=== PATIENT | female | born 1935 | race Caucasian/White ===

== ENCOUNTER 2021-12-23 12:50 | Inpatient (IN) | payer MEDICARE ==
[2021-12-23 13:24] LABS: #Monocytes 0.6 10x3/uL (0.0-1.1); %Basophils 0.1 % (0.0-2.0); %Eosinophils 0.1 % (0.0-6.0); %Lymphocytes 6.2 % (18.0-47.0); %Neutrophils 88.7 % (40.0-75.0); Hemoglobin 8.6 g/dL (12.0-15.5); Mean Corpuscular Hemoglobin 28.5 pg (27.0-33.0); Mean Corpuscular Volume 86.4 fl (81.6-98.3); Mean Platelet Volume 9.6 fl (7.4-10.4); Platelet Count 455 10x3/uL (150-450); RBC Distribution Width 15.3 % (11.5-14.5); Red Blood Cell (RBC) Count 3.02 10x6/uL (3.90-5.03); White Blood Cell (WBC) Count 14.6 10x3/uL (3.5-10.5)
[2021-12-23 13:38] LABS: ALT (SGPT) 13 U/L (8-55); AST (SGOT) 17 U/L (5-34); Albumin 3.5 g/dL (3.4-4.8); Alkaline Phosphatase 128 U/L (40-110); Anion Gap 21 mmol/L (10-20); BUN (Urea Nitrogen) 101 mg/dL (9.8-20.1); Bilirubin, Total 0.4 mg/dL (0.2-1.2); Calc. Creatinine Clearance 0 mL/min (70-130); Calcium 9.1 mg/dL (7.8-10.44); Carbon Dioxide 16 mmol/L (23-31); Chloride 106 mmol/L (98-107); Estimated GFR 5; Globulin 2.8 g/dL (2.4-3.5); Glucose 137 mg/dL (83-110); Potassium 5.1 mmol/L (3.5-5.1); Protein, Total 6.3 g/dL (5.8-8.1); Sodium 138 mmol/L (136-145)
[2021-12-23] MEDS ORDERED: Furosemide 40 MG/4 ML VIAL ONE (14:02)
[2021-12-23] MEDS ORDERED: Ampicillin/Sulbactam 1.5 GM in Sodium Chloride 0.9% 100 ML IVPB SCH (16:45)
[2021-12-23] MEDS ORDERED: Sodium Bicarbonate 150 MEQ in Dextrose 5% in Water 1,000 ML IV SCH (16:45)
[2021-12-23] MEDS ORDERED: Ondansetron PF 4 MG/2 ML Vial IVP PRN (16:54)
[2021-12-23] MEDS ORDERED: Ondansetron ODT 4 MG TAB PO PRN (16:54)
[2021-12-23] MEDS ORDERED: Acetaminophen 325 MG TAB PO PRN (16:54)
[2021-12-23] MEDS ORDERED: Pharmacy to Dose UNASYN IVPB PRN (17:23)
[2021-12-23 18:05] LABS: SARS-CoV-2 NAA Rapid Test Not Detected (NotDetected)
[2021-12-23] MEDS ORDERED: Sodium Bicarbonate 150 MEQ, Admixture Fee 1 EACH in Dextrose 5% in Water 1,000 ML IV SCH (18:17)
[2021-12-23] MEDS: Piperacillin/Tazobactam 3.375 GM in Sodium Chloride 0.9% 100 ML IVPB SCH (22:00)
[2021-12-23] MEDS: guaiFENesin ER 600 MG TAB PO SCH (22:20)
[2021-12-23 22:24] VITALS: BMI 25.7
[2021-12-24 04:51] LABS: #Monocytes 0.5 10x3/uL (0.0-1.1); #Neutrophils 10.2 10x3/uL (1.5-8.4); %Basophils 0.1 % (0.0-2.0); %Eosinophils 0.3 % (0.0-6.0); %Lymphocytes 6.5 % (18.0-47.0); %Monocytes 4.1 % (0.0-10.0); %Neutrophils 88.1 % (40.0-75.0); Hemoglobin 7.7 g/dL (12.0-15.5); Mean Corpuscular HGB CONC 33.3 g/dL (32.0-36.0); Mean Corpuscular Hemoglobin 28.4 pg (27.0-33.0); Mean Corpuscular Volume 85.2 fl (81.6-98.3); Mean Platelet Volume 9.8 fl (7.4-10.4); Platelet Count 412 10x3/uL (150-450); RBC Distribution Width 15.3 % (11.5-14.5); Red Blood Cell (RBC) Count 2.71 10x6/uL (3.90-5.03); White Blood Cell (WBC) Count 11.6 10x3/uL (3.5-10.5)
[2021-12-24 05:14] LABS: Anion Gap 20 mmol/L (10-20); BUN (Urea Nitrogen) 109 mg/dL (9.8-20.1); Calc. Creatinine Clearance 7 mL/min (70-130); Carbon Dioxide 16 mmol/L (23-31); Chloride 107 mmol/L (98-107); Estimated GFR 6; Glucose 124 mg/dL (83-110); Potassium 3.9 mmol/L (3.5-5.1); Sodium 139 mmol/L (136-145)
[2021-12-24 05:28] LABS: Bilirubin Neg (Negative); Blood, Urine Negative (Negative); Clarity Clear (Clear); Glucose, Urine (Dipstick) Normal (Negative); Ketone, Urine Negative (Negative); Leukocyte 25 (Negative); Nitrite Negative (Negative); Protein, Urine (Dipstick) 15 mg/dl (Neg-Trace); Specific Gravity, Urine 1.005 (1.002-1.036); Urobilinogen Normal mg/dL (Less than 2)
[2021-12-24 05:39] LABS: Bacteria/HPF None Seen HPF (None Seen); RBC/HPF 0-3 HPF (0-3); Squamous Epithelial None Seen HPF (0-3); Urine Culture Reflex Yes Yes; WBC/HPF 0-3 HPF (0-3)
[2021-12-24 05:46] LABS: Creatinine, Urine 57.23 mg/dL (47-110)
[2021-12-24 06:54] LABS: Iron 14 ug/dL (50-170); Iron Binding Capacity, Total 139 mcg/dL (265-497)
[2021-12-24] MEDS ORDERED: Sodium Bicarbonate 150 MEQ, Admixture Fee 1 EACH in Dextrose 5% in Water 1,000 ML IV SCH ×2 (08:00→20:30)
[2021-12-24] MEDS: Piperacillin/Tazobactam 3.375 GM in Sodium Chloride 0.9% 100 ML IVPB SCH ×2 (08:26→21:28)
[2021-12-24] MEDS: guaiFENesin ER 600 MG TAB PO SCH ×2 (08:27→21:28)
[2021-12-24] MEDS ORDERED: Ampicillin/Sulbactam 1.5 GM in Sodium Chloride 0.9% 100 ML IVPB SCH (17:00)
[2021-12-25 04:54] LABS: #Eosinphils 0.1 10x3/uL (0.0-0.5); #Monocytes 0.5 10x3/uL (0.0-1.1); #Neutrophils 9.8 10x3/uL (1.5-8.4); %Basophils 0.2 % (0.0-2.0); %Eosinophils 0.4 % (0.0-6.0); %Lymphocytes 6.8 % (18.0-47.0); %Monocytes 4.2 % (0.0-10.0); Hemoglobin 8.1 g/dL (12.0-15.5); Mean Corpuscular Volume 82.4 fl (81.6-98.3); Mean Platelet Volume 9.3 fl (7.4-10.4); Platelet Count 447 10x3/uL (150-450); RBC Distribution Width 14.7 % (11.5-14.5); Red Blood Cell (RBC) Count 2.89 10x6/uL (3.90-5.03); White Blood Cell (WBC) Count 11.3 10x3/uL (3.5-10.5)
[2021-12-25 05:04] LABS: Anion Gap 21 mmol/L (10-20); BUN (Urea Nitrogen) 96 mg/dL (9.8-20.1); Calc. Creatinine Clearance 10 mL/min (70-130); Calcium 8.7 mg/dL (7.8-10.44); Carbon Dioxide 25 mmol/L (23-31); Chloride 102 mmol/L (98-107); Estimated GFR 9; Glucose 130 mg/dL (83-110); Sodium 145 mmol/L (136-145)
[2021-12-25 05:08] LABS: Potassium 2.7 mmol/L (3.5-5.1)
[2021-12-25] MEDS ORDERED: Potassium Chloride 20 MEQ TAB PO SCH ×2 (05:45→08:00)
[2021-12-25] MEDS ORDERED: EPOETIN ALFA-EPBX (ESRD) 10,000 UNIT/ML VIAL SC SCH (08:00)
[2021-12-25] MEDS ORDERED: Epoetin (ESRD) 10,000 UNITS/ML VIAL SC SCH (09:00)
[2021-12-25] MEDS: Piperacillin/Tazobactam 3.375 GM in Sodium Chloride 0.9% 100 ML IVPB SCH ×2 (09:56→20:42)
[2021-12-25] MEDS: Apixaban 2.5 MG TAB PO SCH ×2 (10:17→20:42)
[2021-12-25] MEDS: guaiFENesin ER 600 MG TAB PO SCH ×2 (10:17→20:42)
[2021-12-25] MEDS: Iron, Sodium Ferric Gluconate 250 MG, Admixture Fee 1 EACH in Sodium Chloride 0.9% 250 ... IVPB SCH (11:35)
[2021-12-25 12:10] LABS: Potassium 3.2 mmol/L (3.5-5.1)
[2021-12-25] MEDS ORDERED: Loratadine 10 MG TAB PO SCH (18:30)
[2021-12-25] MEDS ORDERED: Benzonatate 100 MG CAP PO SCH (18:30)
[2021-12-26 04:46] LABS: Anion Gap 15 mmol/L (10-20); BUN (Urea Nitrogen) 70 mg/dL (9.8-20.1); Calc. Creatinine Clearance 17 mL/min (70-130); Calcium 8.4 mg/dL (7.8-10.44); Carbon Dioxide 29 mmol/L (23-31); Chloride 103 mmol/L (98-107); Estimated GFR 18; Glucose 130 mg/dL (83-110); Sodium 145 mmol/L (136-145)
[2021-12-26 04:48] LABS: #Eosinphils 0.1 10x3/uL (0.0-0.5); #Monocytes 0.6 10x3/uL (0.0-1.1); %Basophils 0.2 % (0.0-2.0); %Eosinophils 0.4 % (0.0-6.0); %Lymphocytes 6.6 % (18.0-47.0); %Monocytes 5.2 % (0.0-10.0); %Neutrophils 85.9 % (40.0-75.0); Hemoglobin 8.2 g/dL (12.0-15.5); Mean Corpuscular HGB CONC 33.9 g/dL (32.0-36.0); Mean Corpuscular Hemoglobin 28.1 pg (27.0-33.0); Mean Corpuscular Volume 82.9 fl (81.6-98.3); Mean Platelet Volume 9.1 fl (7.4-10.4); Platelet Count 422 10x3/uL (150-450); RBC Distribution Width 14.6 % (11.5-14.5); Red Blood Cell (RBC) Count 2.92 10x6/uL (3.90-5.03); White Blood Cell (WBC) Count 11.7 10x3/uL (3.5-10.5)
[2021-12-26 04:49] LABS: Potassium 2.4 mmol/L (3.5-5.1)
[2021-12-26] MEDS ORDERED: Potassium Chloride 20 MEQ TAB PO SCH ×2 (05:45→07:30)
[2021-12-26 06:19] LABS: Phosphorus 3.8 mg/dL (2.3-4.7)
[2021-12-26] MEDS: Loratadine 10 MG TAB PO SCH (11:13)
[2021-12-26] MEDS: Benzonatate 100 MG CAP PO SCH ×3 (11:13→21:12)
[2021-12-26] MEDS: Apixaban 2.5 MG TAB PO SCH ×2 (11:14→21:12)
[2021-12-26] MEDS: Piperacillin/Tazobactam 3.375 GM in Sodium Chloride 0.9% 100 ML IVPB SCH ×2 (11:15→22:21)
[2021-12-26] MEDS: Lactated Ringer's 1,000 ML IV SCH (13:31)
[2021-12-26] MEDS: guaiFENesin ER 600 MG TAB PO SCH ×2 (13:32→21:16)
[2021-12-26] MEDS: Potassium Chloride 20 MEQ TAB PO SCH ×2 (13:32→21:22)
[2021-12-26] MEDS: Potassium Chloride 20 MEQ in Premix Bag 1 BAG IVPB SCH ×2 (15:29→21:31)
[2021-12-26] MEDS: Iron, Sodium Ferric Gluconate 250 MG, Admixture Fee 1 EACH in Sodium Chloride 0.9% 250 ... IVPB SCH (15:45)
[2021-12-26 19:23] LABS: Anion Gap 16 mmol/L (10-20); BUN (Urea Nitrogen) 56 mg/dL (9.8-20.1); Calc. Creatinine Clearance 22 mL/min (70-130); Calcium 8.4 mg/dL (7.8-10.44); Carbon Dioxide 29 mmol/L (23-31); Chloride 103 mmol/L (98-107); Estimated GFR 25; Glucose 120 mg/dL (83-110); Potassium 3.3 mmol/L (3.5-5.1); Sodium 145 mmol/L (136-145)
[2021-12-26] MEDS ORDERED: Potassium Chloride 20 MEQ in Premix Bag 1 BAG IVPB SCH (21:00)
[2021-12-27 05:01] LABS: #Eosinphils 0.2 10x3/uL (0.0-0.5); #Monocytes 0.6 10x3/uL (0.0-1.1); #Neutrophils 10.8 10x3/uL (1.5-8.4); %Basophils 0.2 % (0.0-2.0); %Eosinophils 1.3 % (0.0-6.0); %Lymphocytes 9.1 % (18.0-47.0); %Monocytes 4.5 % (0.0-10.0); %Neutrophils 81.1 % (40.0-75.0); Hemoglobin 8.2 g/dL (12.0-15.5); Mean Corpuscular HGB CONC 31.8 g/dL (32.0-36.0); Mean Corpuscular Hemoglobin 27.6 pg (27.0-33.0); Mean Corpuscular Volume 86.9 fl (81.6-98.3); Mean Platelet Volume 9.2 fl (7.4-10.4); Platelet Count 373 10x3/uL (150-450); RBC Distribution Width 14.9 % (11.5-14.5); Red Blood Cell (RBC) Count 2.97 10x6/uL (3.90-5.03); White Blood Cell (WBC) Count 13.4 10x3/uL (3.5-10.5)
[2021-12-27 05:16] LABS: Albumin 2.7 g/dL (3.4-4.8); Anion Gap 15 mmol/L (10-20); BUN (Urea Nitrogen) 48 mg/dL (9.8-20.1); BUN/Creatinine Ratio 29.81; Calc. Creatinine Clearance 26 mL/min (70-130); Carbon Dioxide 26 mmol/L (23-31); Chloride 109 mmol/L (98-107); Estimated GFR 31; Glucose 106 mg/dL (83-110); Magnesium 1.2 mg/dL (1.6-2.6); Phosphorus 2.5 mg/dL (2.3-4.7); Potassium 3.5 mmol/L (3.5-5.1); Sodium 146 mmol/L (136-145)
[2021-12-27] MEDS: Lactated Ringer's 1,000 ML IV SCH (06:31)
[2021-12-27] MEDS ORDERED: Magnesium Sulfate 4 GM in Sodium Chloride 0.9% 250 ML 250 ML IVPB SCH (07:15)
[2021-12-27] MEDS: Magnesium 2 GM/50 ML(in water) 2 GM in Premix Bag 1 BAG IVPB SCH ×2 (09:23→13:50)
[2021-12-27] MEDS: Loratadine 10 MG TAB PO SCH (09:23)
[2021-12-27] MEDS: guaiFENesin ER 600 MG TAB PO SCH ×2 (09:24→21:34)
[2021-12-27] MEDS: Apixaban 2.5 MG TAB PO SCH ×2 (09:24→21:34)
[2021-12-27] MEDS: Benzonatate 100 MG CAP PO SCH ×3 (09:24→21:34)
[2021-12-27] MEDS: Piperacillin/Tazobactam 3.375 GM in Sodium Chloride 0.9% 100 ML IVPB SCH ×2 (09:25→21:26)
[2021-12-27] MEDS ORDERED: Magnesium 2 GM/50 ML(in water) 2 GM in Premix Bag 1 BAG IVPB SCH (13:45)
[2021-12-27] MEDS: Acetylcysteine 800 MG/4 ML VIAL INH SCH ×2 (15:16→20:41)
[2021-12-27] MEDS: Iron, Sodium Ferric Gluconate 250 MG, Admixture Fee 1 EACH in Sodium Chloride 0.9% 250 ... IVPB SCH (16:27)
[2021-12-27] MEDS ORDERED: Potassium Chloride 20 MEQ TAB PO SCH (17:00)
[2021-12-27] MEDS: Potassium Chloride 20 MEQ in Premix Bag 1 BAG IVPB SCH ×2 (18:28→18:30)
[2021-12-28] MEDS: Acetylcysteine 800 MG/4 ML VIAL INH SCH ×4 (01:00→20:58)
[2021-12-28 05:25] LABS: #Eosinphils 0.3 10x3/uL (0.0-0.5); #Monocytes 0.7 10x3/uL (0.0-1.1); #Neutrophils 13.4 10x3/uL (1.5-8.4); %Basophils 0.2 % (0.0-2.0); %Eosinophils 1.6 % (0.0-6.0); %Lymphocytes 8.3 % (18.0-47.0); %Monocytes 4.2 % (0.0-10.0); %Neutrophils 80.8 % (40.0-75.0); Hemoglobin 8.9 g/dL (12.0-15.5); Mean Corpuscular HGB CONC 31.6 g/dL (32.0-36.0); Mean Corpuscular Hemoglobin 27.4 pg (27.0-33.0); Mean Corpuscular Volume 86.8 fl (81.6-98.3); Mean Platelet Volume 9.5 fl (7.4-10.4); Platelet Count 475 10x3/uL (150-450); RBC Distribution Width 14.9 % (11.5-14.5); Red Blood Cell (RBC) Count 3.25 10x6/uL (3.90-5.03); White Blood Cell (WBC) Count 16.6 10x3/uL (3.5-10.5)
[2021-12-28 05:30] LABS: Albumin 2.9 g/dL (3.4-4.8); Anion Gap 13 mmol/L (10-20); BUN (Urea Nitrogen) 28 mg/dL (9.8-20.1); BUN/Creatinine Ratio 23.93; Calc. Creatinine Clearance 36 mL/min (70-130); Calcium 8.4 mg/dL (7.8-10.44); Carbon Dioxide 25 mmol/L (23-31); Chloride 108 mmol/L (98-107); Estimated GFR 45; Glucose 110 mg/dL (83-110); Magnesium 1.8 mg/dL (1.6-2.6); Phosphorus 2.6 mg/dL (2.3-4.7); Potassium 3.4 mmol/L (3.5-5.1); Sodium 143 mmol/L (136-145)
[2021-12-28] MEDS: Lactated Ringer's 1,000 ML IV SCH (06:42)
[2021-12-28] MEDS: Potassium Chloride 20 MEQ TAB PO SCH ×2 (10:14→21:33)
[2021-12-28] MEDS: Benzonatate 100 MG CAP PO SCH ×3 (10:15→21:33)
[2021-12-28] MEDS: Magnesium Oxide 400 MG TAB PO SCH ×2 (10:15→21:33)
[2021-12-28] MEDS: Apixaban 2.5 MG TAB PO SCH ×2 (10:15→21:34)
[2021-12-28] MEDS: guaiFENesin ER 600 MG TAB PO SCH ×2 (10:15→21:34)
[2021-12-28] MEDS: Piperacillin/Tazobactam 3.375 GM in Sodium Chloride 0.9% 100 ML IVPB SCH ×2 (10:16→17:17)
[2021-12-28] MEDS: Loratadine 10 MG TAB PO SCH (10:16)
[2021-12-29] MEDS ORDERED: Piperacillin/Tazobactam 3.375 GM VIAL ONE (00:56)
[2021-12-29] MEDS: Acetylcysteine 800 MG/4 ML VIAL INH SCH ×4 (01:00→20:02)
[2021-12-29] MEDS: Piperacillin/Tazobactam 3.375 GM in Sodium Chloride 0.9% 100 ML IVPB SCH ×3 (01:14→17:16)
[2021-12-29 05:42] LABS: #Basophils 0.1 10x3/uL (0.0-0.2); #Eosinphils 0.3 10x3/uL (0.0-0.5); #Monocytes 0.7 10x3/uL (0.0-1.1); #Neutrophils 12.8 10x3/uL (1.5-8.4); %Basophils 0.3 % (0.0-2.0); %Monocytes 4.4 % (0.0-10.0); %Neutrophils 78.3 % (40.0-75.0); Hemoglobin 9.1 g/dL (12.0-15.5); Mean Corpuscular HGB CONC 30.8 g/dL (32.0-36.0); Mean Corpuscular Volume 90.8 fl (81.6-98.3); Mean Platelet Volume 9.3 fl (7.4-10.4); Platelet Count 475 10x3/uL (150-450); RBC Distribution Width 14.9 % (11.5-14.5); Red Blood Cell (RBC) Count 3.25 10x6/uL (3.90-5.03); White Blood Cell (WBC) Count 16.3 10x3/uL (3.5-10.5)
[2021-12-29 05:54] LABS: Anion Gap 15 mmol/L (10-20); BUN (Urea Nitrogen) 20 mg/dL (9.8-20.1); BUN/Creatinine Ratio 18.87; Calc. Creatinine Clearance 40 mL/min (70-130); Calcium 8.9 mg/dL (7.8-10.44); Carbon Dioxide 25 mmol/L (23-31); Chloride 110 mmol/L (98-107); Estimated GFR 51; Glucose 100 mg/dL (83-110); Magnesium 1.5 mg/dL (1.6-2.6); Phosphorus 2.6 mg/dL (2.3-4.7); Potassium 4.3 mmol/L (3.5-5.1); Sodium 146 mmol/L (136-145)
[2021-12-29] MEDS ORDERED: Magnesium 2 GM/50 ML(in water) 4 GM in Premix Bag 1 BAG IVPB SCH (06:30)
[2021-12-29] MEDS ORDERED: Magnesium 2 GM/50 ML(in water) 2 GM in Premix Bag 1 BAG IVPB SCH (08:00)
[2021-12-29] MEDS: Magnesium Oxide 400 MG TAB PO SCH ×2 (10:10→20:47)
[2021-12-29] MEDS: Apixaban 2.5 MG TAB PO SCH ×2 (10:10→20:47)
[2021-12-29] MEDS: guaiFENesin ER 600 MG TAB PO SCH ×2 (10:10→20:47)
[2021-12-29] MEDS: Loratadine 10 MG TAB PO SCH (10:10)
[2021-12-29] MEDS: Potassium Chloride 20 MEQ TAB PO SCH (10:10)
[2021-12-29] MEDS: Benzonatate 100 MG CAP PO SCH ×3 (10:10→20:47)
[2021-12-30] MEDS: Acetylcysteine 800 MG/4 ML VIAL INH SCH ×4 (01:00→19:20)
[2021-12-30] MEDS: Piperacillin/Tazobactam 3.375 GM in Sodium Chloride 0.9% 100 ML IVPB SCH ×3 (01:03→20:03)
[2021-12-30 05:16] LABS: #Basophils 0.1 10x3/uL (0.0-0.2); #Eosinphils 0.3 10x3/uL (0.0-0.5); #Monocytes 0.7 10x3/uL (0.0-1.1); #Neutrophils 12.2 10x3/uL (1.5-8.4); %Basophils 0.4 % (0.0-2.0); %Eosinophils 1.9 % (0.0-6.0); %Lymphocytes 9.2 % (18.0-47.0); %Monocytes 4.5 % (0.0-10.0); %Neutrophils 79.9 % (40.0-75.0); Hemoglobin 8.3 g/dL (12.0-15.5); Mean Corpuscular HGB CONC 31.2 g/dL (32.0-36.0); Mean Corpuscular Volume 89.9 fl (81.6-98.3); Mean Platelet Volume 9.5 fl (7.4-10.4); Platelet Count 458 10x3/uL (150-450); RBC Distribution Width 14.7 % (11.5-14.5); Red Blood Cell (RBC) Count 2.96 10x6/uL (3.90-5.03); White Blood Cell (WBC) Count 15.2 10x3/uL (3.5-10.5)
[2021-12-30 05:38] LABS: Albumin 2.8 g/dL (3.4-4.8); Anion Gap 16 mmol/L (10-20); BUN (Urea Nitrogen) 20 mg/dL (9.8-20.1); BUN/Creatinine Ratio 18.18; Calc. Creatinine Clearance 39 mL/min (70-130); Calcium 8.6 mg/dL (7.8-10.44); Carbon Dioxide 24 mmol/L (23-31); Chloride 108 mmol/L (98-107); Estimated GFR 49; Glucose 100 mg/dL (83-110); Phosphorus 2.9 mg/dL (2.3-4.7); Potassium 3.7 mmol/L (3.5-5.1); Sodium 144 mmol/L (136-145)
[2021-12-30] MEDS: traMADol HCl 50 MG TAB PO PRN (06:15)
[2021-12-30] MEDS: Potassium Chloride 20 MEQ TAB PO SCH (10:08)
[2021-12-30] MEDS: guaiFENesin ER 600 MG TAB PO SCH ×2 (10:08→21:32)
[2021-12-30] MEDS: Magnesium Oxide 400 MG TAB PO SCH ×2 (10:09→21:33)
[2021-12-30] MEDS: Loratadine 10 MG TAB PO SCH (10:09)
[2021-12-30] MEDS: Benzonatate 100 MG CAP PO SCH ×3 (10:09→21:33)
[2021-12-30] MEDS: Apixaban 2.5 MG TAB PO SCH ×2 (10:09→21:33)
[2021-12-30] MEDS: Amlodipine 5 MG TAB PO SCH (10:09)
[2021-12-30] MEDS ORDERED: predniSONE 20 MG TAB PO SCH (11:00)
[2021-12-30] MEDS ORDERED: Epoetin (ESRD) 10,000 UNITS/ML VIAL SC SCH (12:30)
[2021-12-30] MEDS ORDERED: Iron, Sodium Ferric Gluconate 250 MG in Sodium Chloride 0.9% 250 ML 250 ML IVPB SCH (14:30)
[2021-12-31] MEDS: Piperacillin/Tazobactam 3.375 GM in Sodium Chloride 0.9% 100 ML IVPB SCH ×3 (01:06→17:28)
[2021-12-31] MEDS: Acetylcysteine 800 MG/4 ML VIAL INH SCH ×4 (03:40→19:14)
[2021-12-31 05:18] LABS: #Monocytes 0.2 10x3/uL (0.0-1.1); #Neutrophils 14.3 10x3/uL (1.5-8.4); %Basophils 0.2 % (0.0-2.0); %Lymphocytes 5.2 % (18.0-47.0); %Monocytes 1.4 % (0.0-10.0); %Neutrophils 88.7 % (40.0-75.0); Mean Corpuscular HGB CONC 31.4 g/dL (32.0-36.0); Mean Corpuscular Hemoglobin 28.4 pg (27.0-33.0); Mean Corpuscular Volume 90.4 fl (81.6-98.3); Mean Platelet Volume 9.9 fl (7.4-10.4); Platelet Count 425 10x3/uL (150-450); Red Blood Cell (RBC) Count 2.82 10x6/uL (3.90-5.03); White Blood Cell (WBC) Count 16.1 10x3/uL (3.5-10.5)
[2021-12-31 05:31] LABS: Magnesium 1.7 mg/dL (1.6-2.6)
[2021-12-31 08:27] LABS: Anion Gap 13 mmol/L (10-20); BUN (Urea Nitrogen) 22 mg/dL (9.8-20.1); Calc. Creatinine Clearance 42 mL/min (70-130); Calcium 8.8 mg/dL (7.8-10.44); Carbon Dioxide 24 mmol/L (23-31); Chloride 107 mmol/L (98-107); Estimated GFR 53; Glucose 138 mg/dL (83-110); Potassium 4.3 mmol/L (3.5-5.1); Sodium 140 mmol/L (136-145)
[2021-12-31] MEDS: Potassium Chloride 20 MEQ TAB PO SCH (09:08)
[2021-12-31] MEDS: Magnesium Oxide 400 MG TAB PO SCH ×2 (09:09→21:11)
[2021-12-31] MEDS: predniSONE 50 MG TAB PO SCH (09:09)
[2021-12-31] MEDS: Apixaban 2.5 MG TAB PO SCH (09:12)
[2021-12-31] MEDS: guaiFENesin ER 600 MG TAB PO SCH ×2 (09:12→21:10)
[2021-12-31] MEDS: Loratadine 10 MG TAB PO SCH (09:12)
[2021-12-31] MEDS: Benzonatate 100 MG CAP PO SCH ×3 (09:12→21:11)
[2021-12-31] MEDS: Amlodipine 5 MG TAB PO SCH (09:12)
[2021-12-31] MEDS ORDERED: Magnesium Sulfate 4 GM in Sodium Chloride 0.9% 250 ML 250 ML IVPB SCH (09:15)
[2021-12-31] MEDS ORDERED: Magnesium 2 GM/50 ML BAG (IN WATER) ONE (11:06)
[2021-12-31] MEDS: Magnesium 2 GM/50 ML(in water) 2 GM in Premix Bag 1 BAG IVPB SCH ×2 (11:19→13:36)
[2021-12-31] MEDS: traMADol HCl 50 MG TAB PO PRN (20:08)
[2021-12-31] MEDS: Apixaban 5 MG TAB PO SCH (21:11)
[2022-01-01] MEDS: Acetylcysteine 800 MG/4 ML VIAL INH SCH ×4 (00:42→19:59)
[2022-01-01] MEDS: Piperacillin/Tazobactam 3.375 GM in Sodium Chloride 0.9% 100 ML IVPB SCH ×2 (02:14→08:31)
[2022-01-01 03:46] LABS: #Monocytes 0.9 10x3/uL (0.0-1.1); #Neutrophils 15.1 10x3/uL (1.5-8.4); %Basophils 0.2 % (0.0-2.0); %Eosinophils 0.1 % (0.0-6.0); %Lymphocytes 7.3 % (18.0-47.0); %Monocytes 4.8 % (0.0-10.0); %Neutrophils 83.2 % (40.0-75.0); Hemoglobin 7.9 g/dL (12.0-15.5); Mean Corpuscular HGB CONC 31.1 g/dL (32.0-36.0); Mean Corpuscular Hemoglobin 27.8 pg (27.0-33.0); Mean Corpuscular Volume 89.4 fl (81.6-98.3); Mean Platelet Volume 9.7 fl (7.4-10.4); Platelet Count 448 10x3/uL (150-450); RBC Distribution Width 15.4 % (11.5-14.5); Red Blood Cell (RBC) Count 2.84 10x6/uL (3.90-5.03); White Blood Cell (WBC) Count 18.1 10x3/uL (3.5-10.5)
[2022-01-01 03:58] LABS: Anion Gap 12 mmol/L (10-20); BUN (Urea Nitrogen) 23 mg/dL (9.8-20.1); Calc. Creatinine Clearance 38 mL/min (70-130); Calcium 8.7 mg/dL (7.8-10.44); Carbon Dioxide 24 mmol/L (23-31); Chloride 109 mmol/L (98-107); Estimated GFR 48; Glucose 111 mg/dL (83-110); Magnesium 1.9 mg/dL (1.6-2.6); Potassium 4.3 mmol/L (3.5-5.1); Sodium 141 mmol/L (136-145)
[2022-01-01] MEDS: Magnesium Oxide 400 MG TAB PO SCH ×2 (08:31→21:08)
[2022-01-01] MEDS: guaiFENesin ER 600 MG TAB PO SCH ×2 (08:31→21:10)
[2022-01-01] MEDS: predniSONE 50 MG TAB PO SCH (08:31)
[2022-01-01] MEDS: Amlodipine 5 MG TAB PO SCH (08:31)
[2022-01-01] MEDS: Apixaban 5 MG TAB PO SCH ×2 (08:32→21:08)
[2022-01-01] MEDS: Benzonatate 100 MG CAP PO SCH ×3 (08:32→21:08)
[2022-01-01] MEDS: Loratadine 10 MG TAB PO SCH (08:32)
[2022-01-02] MEDS: Acetylcysteine 800 MG/4 ML VIAL INH SCH ×4 (00:56→20:14)
[2022-01-02 05:46] LABS: #Neutrophils 11.7 10x3/uL (1.5-8.4); %Basophils 0.1 % (0.0-2.0); %Lymphocytes 9.1 % (18.0-47.0); %Monocytes 6.8 % (0.0-10.0); %Neutrophils 79.8 % (40.0-75.0); Hemoglobin 7.6 g/dL (12.0-15.5); Mean Corpuscular HGB CONC 31.1 g/dL (32.0-36.0); Mean Corpuscular Hemoglobin 28.3 pg (27.0-33.0); Mean Corpuscular Volume 90.7 fl (81.6-98.3); Mean Platelet Volume 9.8 fl (7.4-10.4); Platelet Count 463 10x3/uL (150-450); RBC Distribution Width 15.8 % (11.5-14.5); Red Blood Cell (RBC) Count 2.69 10x6/uL (3.90-5.03); White Blood Cell (WBC) Count 14.6 10x3/uL (3.5-10.5)
[2022-01-02 05:56] LABS: Anion Gap 11 mmol/L (10-20); BUN (Urea Nitrogen) 23 mg/dL (9.8-20.1); Calc. Creatinine Clearance 41 mL/min (70-130); Calcium 8.5 mg/dL (7.8-10.44); Carbon Dioxide 26 mmol/L (23-31); Chloride 109 mmol/L (98-107); Estimated GFR 53; Glucose 111 mg/dL (83-110); Magnesium 1.7 mg/dL (1.6-2.6); Sodium 142 mmol/L (136-145)
[2022-01-02] MEDS: Apixaban 5 MG TAB PO SCH ×2 (09:43→21:26)
[2022-01-02] MEDS: Amlodipine 5 MG TAB PO SCH (09:43)
[2022-01-02] MEDS: predniSONE 50 MG TAB PO SCH (09:43)
[2022-01-02] MEDS: Benzonatate 100 MG CAP PO SCH ×3 (09:43→21:26)
[2022-01-02] MEDS: guaiFENesin ER 600 MG TAB PO SCH ×2 (09:43→21:26)
[2022-01-02] MEDS: Loratadine 10 MG TAB PO SCH (09:43)
[2022-01-02] MEDS: Magnesium Oxide 400 MG TAB PO SCH ×2 (09:43→21:26)
[2022-01-02] MEDS: traMADol HCl 50 MG TAB PO PRN (15:08)
[2022-01-03] MEDS: Acetylcysteine 800 MG/4 ML VIAL INH SCH ×4 (01:00→19:22)
[2022-01-03 05:13] LABS: #Monocytes 0.8 10x3/uL (0.0-1.1); #Neutrophils 10.5 10x3/uL (1.5-8.4); %Basophils 0.2 % (0.0-2.0); %Eosinophils 0.1 % (0.0-6.0); %Lymphocytes 10.6 % (18.0-47.0); %Monocytes 6.3 % (0.0-10.0); %Neutrophils 80.4 % (40.0-75.0); Hemoglobin 7.8 g/dL (12.0-15.5); Mean Corpuscular HGB CONC 31.7 g/dL (32.0-36.0); Mean Corpuscular Hemoglobin 28.4 pg (27.0-33.0); Mean Corpuscular Volume 89.5 fl (81.6-98.3); Mean Platelet Volume 9.9 fl (7.4-10.4); Platelet Count 473 10x3/uL (150-450); RBC Distribution Width 16.1 % (11.5-14.5); Red Blood Cell (RBC) Count 2.75 10x6/uL (3.90-5.03); White Blood Cell (WBC) Count 13.1 10x3/uL (3.5-10.5)
[2022-01-03 05:15] LABS: Anion Gap 12 mmol/L (10-20); BUN (Urea Nitrogen) 25 mg/dL (9.8-20.1); Calc. Creatinine Clearance 51 mL/min (70-130); Calcium 8.9 mg/dL (7.8-10.44); Carbon Dioxide 26 mmol/L (23-31); Chloride 105 mmol/L (98-107); Estimated GFR 67; Glucose 96 mg/dL (83-110); Potassium 4.2 mmol/L (3.5-5.1); Sodium 139 mmol/L (136-145)
[2022-01-03 05:44] LABS: Magnesium 1.7 mg/dL (1.6-2.6)
[2022-01-03] MEDS: Benzonatate 100 MG CAP PO SCH ×3 (09:36→20:44)
[2022-01-03] MEDS: guaiFENesin ER 600 MG TAB PO SCH ×2 (09:36→20:44)
[2022-01-03] MEDS: Apixaban 5 MG TAB PO SCH ×2 (09:36→20:44)
[2022-01-03] MEDS: Amlodipine 5 MG TAB PO SCH (09:37)
[2022-01-03] MEDS: Loratadine 10 MG TAB PO SCH (09:37)
[2022-01-03] MEDS: Magnesium Oxide 400 MG TAB PO SCH ×2 (09:37→20:44)
[2022-01-03] MEDS: predniSONE 50 MG TAB PO SCH (09:37)
[2022-01-03] MEDS: traMADol HCl 50 MG TAB PO PRN (14:42)
[2022-01-04] MEDS: Acetylcysteine 800 MG/4 ML VIAL INH SCH ×4 (01:00→19:00)
[2022-01-04] MEDS: Amlodipine 5 MG TAB PO SCH (05:13)
[2022-01-04 05:37] LABS: Anion Gap 10 mmol/L (10-20); BUN (Urea Nitrogen) 24 mg/dL (9.8-20.1); Calc. Creatinine Clearance 50 mL/min (70-130); Calcium 8.9 mg/dL (7.8-10.44); Carbon Dioxide 27 mmol/L (23-31); Chloride 107 mmol/L (98-107); Estimated GFR 66; Glucose 111 mg/dL (83-110); Potassium 4.2 mmol/L (3.5-5.1); Sodium 140 mmol/L (136-145)
[2022-01-04] MEDS: Magnesium Oxide 400 MG TAB PO SCH ×2 (09:57→20:44)
[2022-01-04] MEDS: Apixaban 5 MG TAB PO SCH ×2 (09:57→20:44)
[2022-01-04] MEDS: Benzonatate 100 MG CAP PO SCH ×3 (09:58→20:44)
[2022-01-04] MEDS: guaiFENesin ER 600 MG TAB PO SCH ×2 (09:58→20:44)
[2022-01-04] MEDS: Loratadine 10 MG TAB PO SCH (09:58)
[2022-01-05] MEDS: Acetylcysteine 800 MG/4 ML VIAL INH SCH ×4 (01:00→19:46)
[2022-01-05 04:53] LABS: Anion Gap 11 mmol/L (10-20); BUN (Urea Nitrogen) 21 mg/dL (9.8-20.1); Calc. Creatinine Clearance 55 mL/min (70-130); Calcium 8.8 mg/dL (7.8-10.44); Carbon Dioxide 28 mmol/L (23-31); Chloride 103 mmol/L (98-107); Estimated GFR 75; Glucose 89 mg/dL (83-110); Potassium 3.9 mmol/L (3.5-5.1); Sodium 138 mmol/L (136-145)
[2022-01-05] MEDS: Amlodipine 5 MG TAB PO SCH (05:49)
[2022-01-05] MEDS: guaiFENesin ER 600 MG TAB PO SCH ×2 (09:35→20:36)
[2022-01-05] MEDS: Apixaban 5 MG TAB PO SCH ×2 (09:36→20:36)
[2022-01-05] MEDS: Amlodipine 10 MG TAB PO SCH (09:36)
[2022-01-05] MEDS: Magnesium Oxide 400 MG TAB PO SCH ×2 (09:37→20:36)
[2022-01-05] MEDS: Loratadine 10 MG TAB PO SCH (09:37)
[2022-01-05] MEDS: Benzonatate 100 MG CAP PO SCH ×3 (09:37→20:36)
[2022-01-05 23:52] LABS: SARS-CoV-2 NAA Rapid Test Not Detected (NotDetected)
[2022-01-06] MEDS: Acetylcysteine 800 MG/4 ML VIAL INH SCH ×2 (03:31→07:04)
[2022-01-06 04:09] LABS: Anion Gap 12 mmol/L (10-20); BUN (Urea Nitrogen) 21 mg/dL (9.8-20.1); Calc. Creatinine Clearance 43 mL/min (70-130); Calcium 8.9 mg/dL (7.8-10.44); Carbon Dioxide 28 mmol/L (23-31); Chloride 104 mmol/L (98-107); Estimated GFR 55; Glucose 106 mg/dL (83-110); Sodium 140 mmol/L (136-145)
[2022-01-06 07:49] VITALS: BP 154/70; TEMP 98.1
[2022-01-06] MEDS: guaiFENesin ER 600 MG TAB PO SCH (11:30)
[2022-01-06] MEDS: Apixaban 5 MG TAB PO SCH (11:30)
[2022-01-06] MEDS: Loratadine 10 MG TAB PO SCH (11:30)
[2022-01-06] MEDS: Amlodipine 10 MG TAB PO SCH (11:30)
[2022-01-06] MEDS: Benzonatate 100 MG CAP PO SCH (11:31)
[2022-01-06] MEDS: Magnesium Oxide 400 MG TAB PO SCH (11:31)
== END 2022-01-06 12:15 | DRG 177 ==
LOC: CSHERS 12:50 → CSHTELE 20:21
PROVIDERS: ADMIT Physician Assistant; ATTEND Internal Medicine
DX: J69.0 Pneumonitis due to inhalation of food and vomit (principal); I50.43 Acute on chronic combined systolic (congestive) and diastolic (congestive) heart failure; J96.01 Acute respiratory failure with hypoxia; E87.2 Acidosis; N17.9 Acute kidney failure, unspecified; J45.901 Unspecified asthma with (acute) exacerbation; I13.0 Hypertensive heart and chronic kidney disease with heart failure and stage 1 through stage 4 chronic kidney disease, or unspecified chronic kidney disease; E78.5 Hyperlipidemia, unspecified; Z66 Do not resuscitate; D50.9 Iron deficiency anemia, unspecified; R63.1 Polydipsia; E87.6 Hypokalemia; I27.20 Pulmonary hypertension, unspecified; E83.42 Hypomagnesemia; J42 Unspecified chronic bronchitis; I48.0 Paroxysmal atrial fibrillation; N18.30 Chronic kidney disease, stage 3 unspecified; Z20.822 Contact with and (suspected) exposure to COVID-19; Z79.899 Other long term (current) drug therapy; Z79.82 Long term (current) use of aspirin; Z79.51 Long term (current) use of inhaled steroids; Z90.710 Acquired absence of both cervix and uterus; Z98.890 Other specified postprocedural states
CPT/HCPCS: 36415; 70450; 70551; 71045; 71250; 74230; 80048; 80053; 80069; 81001; 82570; 82728; 83540; 83550; 83735; 83880; 84100; 84145; 84156; 84300; 84484; 84540; 85025; 85652; 86140; 87040; 87070; 87081; 87086; 87205; 89220; 93005; 93010; 93306; 93970; 94640; 94667; 94668; 94669; 94760; 96374; 96375; J0295; J1940; J2543; J2916; J3475; J3480; J3490; J7050; J7070; J7120; J7512; J7620; Q4081; U0002; U0003; U0005

== ENCOUNTER 2022-06-11 13:57 | Outpatient (CLI) | payer MEDICARE, OTHER ==
[2022-06-11 15:38] LABS: Hemoglobin 10.4 g/dL (12.0-15.5); Mean Corpuscular HGB CONC 31.2 g/dL (32.0-36.0); Mean Corpuscular Hemoglobin 27.2 pg (27.0-33.0); Mean Corpuscular Volume 87.2 fl (81.6-98.3); Platelet Count 536 10x3/uL (150-450); RBC Distribution Width 15.4 % (11.5-14.5); Red Blood Cell (RBC) Count 3.82 10x6/uL (3.90-5.03); White Blood Cell (WBC) Count 17.4 10x3/uL (3.5-10.5)
[2022-06-11 16:14] LABS: PTT 29.2 sec (22.0-33.0); Prothrombin Time 10.8 sec (9.5-12.1)
[2022-06-11 16:21] LABS: Anion Gap 14 mmol/L (10-20); BUN (Urea Nitrogen) 26 mg/dL (9.8-20.1); Calc. Creatinine Clearance 0 mL/min (70-130); Calcium 10.2 mg/dL (7.8-10.44); Carbon Dioxide 25 mmol/L (23-31); Chloride 99 mmol/L (98-107); Estimated GFR 28; Glucose 91 mg/dL (83-110); Potassium 5.4 mmol/L (3.5-5.1); Sodium 133 mmol/L (136-145)
== END 2022-06-11 13:58 | disposition home or self-care (01) ==
LOC: CSHLAB 13:57
PROVIDERS: ATTEND Orthopaedic Surgery
DX: Z01.818 Encounter for other preprocedural examination (principal)
CPT/HCPCS: 80048; 85027; 85610; 85730; 93005; 93010

== ENCOUNTER 2022-06-16 08:00 | Outpatient (CLI) | payer MEDICARE ==
[2022-06-16 10:19] LABS: Hemoglobin 10.3 g/dL (12.0-15.5); Mean Corpuscular HGB CONC 31.1 g/dL (32.0-36.0); Mean Corpuscular Hemoglobin 26.8 pg (27.0-33.0); Mean Corpuscular Volume 86.2 fl (81.6-98.3); Mean Platelet Volume 8.4 fl (7.4-10.4); Platelet Count 526 10x3/uL (150-450); RBC Distribution Width 15.2 % (11.5-14.5); Red Blood Cell (RBC) Count 3.84 10x6/uL (3.90-5.03); White Blood Cell (WBC) Count 12.7 10x3/uL (3.5-10.5)
[2022-06-16 11:51] LABS: Bilirubin Neg (Negative); Blood, Urine 10 (Negative); Clarity Hazy (Clear); Glucose, Urine (Dipstick) Normal (Negative); Ketone, Urine Negative (Negative); Leukocyte 25 (Negative); Nitrite Negative (Negative); Protein, Urine (Dipstick) 15 mg/dl (Neg-Trace); Urobilinogen Normal mg/dL (Less than 2)
== END 2022-06-16 08:01 | disposition home or self-care (01) ==
LOC: CSHLAB 08:00
PROVIDERS: ATTEND Orthopaedic Surgery
DX: Z01.812 Encounter for preprocedural laboratory examination (principal)
CPT/HCPCS: 81003; 85027

== ENCOUNTER 2022-06-17 05:42 | Day surgery (SDC) | payer MEDICARE ==
[2022-06-16 12:47] VITALS: BMI 22.4
[2022-06-17] MEDS ORDERED: Famotidine/PF 20 mg/2ml Vial ONE (06:46)
[2022-06-17] MEDS ORDERED: CEFAZOLIN 1 GM VIAL ONE (06:49)
[2022-06-17] MEDS ORDERED: Bupivacaine/Epinephrine 0.25% 30 ML VIAL ONE (06:50)
[2022-06-17] MEDS ORDERED: Fentanyl 100 MCG/2 ML VIAL ONE ×2 (06:59→11:14)
[2022-06-17] MEDS ORDERED: PROPOFOL 20 ML ONE (06:59)
[2022-06-17] MEDS ORDERED: Rocuronium Bromide 10 MG/ML (10ML VIAL) ONE (06:59)
[2022-06-17] MEDS ORDERED: Ondansetron PF 4 MG/2 ML Vial ONE ×2 (06:59→09:54)
[2022-06-17] MEDS ORDERED: Lidocaine 1% PF 5 ML VIAL ONE (07:00)
[2022-06-17] MEDS ORDERED: Dexamethasone 4 mg/ml Vial ONE (07:00)
[2022-06-17] MEDS ORDERED: Esmolol 100 MG/10 ML VIAL ONE (07:00)
[2022-06-17] MEDS ORDERED: SUGAMMADEX SODIUM 200 MG/2 ML VIAL ONE (07:16)
[2022-06-17] MEDS ORDERED: PHENYLEPHRINE-NS 100 MCG/ML 10 ML SYRINGE ONE (07:51)
[2022-06-17] MEDS ORDERED: ePHEDrine Sulfate 50 MG/10 ML VIAL ONE (08:01)
== END 2022-06-17 12:25 | disposition home or self-care (01) ==
LOC: CSHSDC 05:42
PROVIDERS: ATTEND Orthopaedic Surgery
PROC: 0RT90ZZ Resection of Thoracic Vertebral Disc, Open Approach (ICD-10-PCS; principal; 2022-06-17)
DX: G89.4 Chronic pain syndrome (principal); M54.16 Radiculopathy, lumbar region; I10 Essential (primary) hypertension; I25.10 Atherosclerotic heart disease of native coronary artery without angina pectoris; J45.909 Unspecified asthma, uncomplicated; I48.91 Unspecified atrial fibrillation; Z79.01 Long term (current) use of anticoagulants; Z79.899 Other long term (current) drug therapy
CPT/HCPCS: 63016; 63655; 63685; 72072; C1778; C1820; C1889; J0690; J1100; J2405; J2704; J3010; S0028

== ENCOUNTER 2022-07-30 13:50 | Outpatient (CLI) | payer MEDICARE, OTHER | END 2022-07-30 13:51 | disposition home or self-care (01) | LOC: CSHRAD 13:50 | PROVIDERS: ATTEND Orthopaedic Surgery | DX: M54.6 Pain in thoracic spine (principal); M47.814 Spondylosis without myelopathy or radiculopathy, thoracic region | CPT/HCPCS: 72070 ==

== ENCOUNTER 2023-03-03 12:17 | Outpatient (CLI) | payer MEDICARE ==
[2023-03-03 13:57] LABS: Hematocrit 35.2 % (34.9-44.5); Hemoglobin 10.8 g/dL (12.0-15.5); Mean Corpuscular HGB CONC 30.7 g/dL (32.0-36.0); Mean Corpuscular Hemoglobin 27.4 pg (27.0-33.0); Mean Corpuscular Volume 89.3 fl (81.6-98.3); Mean Platelet Volume 9.2 fl (7.4-10.4); Platelet Count 394 10x3/uL (150-450); RBC Distribution Width 14.8 % (11.5-14.5); Red Blood Cell (RBC) Count 3.94 10x6/uL (3.90-5.03); White Blood Cell (WBC) Count 10.5 10x3/uL (3.5-10.5)
[2023-03-03 14:10] LABS: Anion Gap 17 mmol/L (10-20); BUN (Urea Nitrogen) 24 mg/dL (9.8-20.1); Calc. Creatinine Clearance 0 mL/min (70-130); Calcium 9.8 mg/dL (7.8-10.44); Carbon Dioxide 22 mmol/L (23-31); Chloride 106 mmol/L (98-107); Estimated GFR 46; Glucose 96 mg/dL (83-110); Potassium 4.9 mmol/L (3.5-5.1); Sodium 140 mmol/L (136-145)
[2023-03-03 14:18] LABS: PTT 28.7 sec (22.0-33.0); Prothrombin Time 10.5 sec (9.5-12.1)
== END 2023-03-03 12:18 | disposition home or self-care (01) ==
LOC: CSHLAB 12:17
PROVIDERS: ATTEND Orthopaedic Surgery
DX: Z01.818 Encounter for other preprocedural examination (principal); T85.199A Other mechanical complication of other implanted electronic stimulator of nervous system, initial encounter
CPT/HCPCS: 80048; 85027; 85610; 85730; 93005; 93010

== ENCOUNTER 2023-03-05 05:56 | Day surgery (SDC) | payer MEDICARE ==
[2023-03-03 13:03] VITALS: BMI 32.2
[2023-03-05] MEDS ORDERED: EPINEPHrine 1 MG/ML VIAL ONE (06:49)
[2023-03-05] MEDS ORDERED: Bupivacaine 0.25% HCL 30 ML VIAL ONE (06:49)
[2023-03-05] MEDS ORDERED: Famotidine/PF 20 mg/2ml Vial ONE (07:12)
[2023-03-05] MEDS ORDERED: CEFAZOLIN 2 GM VIAL ONE (07:50)
[2023-03-05] MEDS ORDERED: PROPOFOL 20 ML ONE (07:58)
[2023-03-05] MEDS ORDERED: Midazolam HCl 2 mg/2 ml Vial ONE (08:08)
[2023-03-05] MEDS ORDERED: fentaNYL 50 mcg/mL 1 mL Vial ONE (08:09)
== END 2023-03-05 10:05 | disposition home or self-care (01) ==
LOC: CSHSDC 05:56
PROVIDERS: ATTEND Orthopaedic Surgery
PROC: 0JPT0MZ Removal of Stimulator Generator from Trunk Subcutaneous Tissue and Fascia, Open Approach (ICD-10-PCS; principal; 2023-03-05)
DX: T85.734A Infection and inflammatory reaction due to implanted electronic neurostimulator, generator, initial encounter (principal); I11.0 Hypertensive heart disease with heart failure; I50.9 Heart failure, unspecified; E78.5 Hyperlipidemia, unspecified; I48.91 Unspecified atrial fibrillation; Y75.3 Surgical instruments, materials and neurological devices (including sutures) associated with adverse incidents
CPT/HCPCS: 63688; C1889; J0171; J3010; J2250; J2704; S0020; S0028

== ENCOUNTER 2023-11-22 13:35 | Outpatient (CLI) | payer MEDICARE | END 2023-11-22 13:36 | disposition home or self-care (01) | LOC: CSHRAD 13:35 | PROVIDERS: ATTEND Specialist | DX: R06.02 Shortness of breath (principal); M48.54XA Collapsed vertebra, not elsewhere classified, thoracic region, initial encounter for fracture; M48.54XD Collapsed vertebra, not elsewhere classified, thoracic region, subsequent encounter for fracture with routine healing; M85.80 Other specified disorders of bone density and structure, unspecified site; J84.9 Interstitial pulmonary disease, unspecified | CPT/HCPCS: 71046 ==

== ENCOUNTER 2024-06-12 13:40 | Outpatient (CLI) | payer MEDICARE | END 2024-06-12 13:41 | disposition home or self-care (01) | LOC: CSHWCC 13:40 | PROVIDERS: ATTEND Nurse Practitioner Family | DX: T81.328D Disruption or dehiscence of closure of other specified internal operation (surgical) wound, subsequent encounter (principal); M40.204 Unspecified kyphosis, thoracic region | CPT/HCPCS: 11042; 99213; G0463 ==